=== PATIENT | male | born 1955 | race Caucasian/White ===

== ENCOUNTER 2016-10-06 23:57 | Emergency (ER) | payer BC ==
[~2016-10-06 23:57] MED LIST: ALEVE220 MG PO; ASAB PO; DILT-XR120 MG PO; GOODY'S EX-STR1 EAC1 PO; GOODYS PM1 POW OR; LIPITOR40 PO; LOP25 PO; MUCINEX600 MG PO; NEXIUM40 PO; NTG150 SL; PLAVIX PO; PREV30 PO; PRIN5 PO; SUCR PO
[2016-10-07 00:37] LABS: BASOPHILS 0.2 %; BASOPHILS ABSOLUTE 0.03 10/3/uL (0.0-0.16); EOSINOPHILS 2.7 %; EOSINOPHILS ABSOLUTE 0.34 10/3/uL (0.0-0.53); HEMATOCRIT 43.3 % (40.0-51.0); HEMOGLOBIN 14.8 g/dL (13.6-17.8); IMMATURE GRANULOCYTES 0.3 %; IMMATURE GRANULOCYTES ABSOLUTE 0.04 10/3/uL (0.0-0.11); LYMPHOCYTES ABSOLUTE 3.72 10/3/uL (0.67-4.30); MANUAL DIFF NO %; MEAN CORPUS HGB CONC 34.2 g/dL (32.0-36.0); MEAN CORPUSCULAR VOLUME 90.8 fL (80-100); MEAN PLATELET VOLUME 8.6 fL (9.2-13.0); MONOCYTES 9.8 %; MONOCYTES ABSOLUTE 1.26 10/3/uL (0.21-1.20); NEUTROPHILS ABSOLUTE 7.44 10/3/uL (2.02-8.40); PLATELET COUNT 257 10/3/uL (150-400); RBC DISTRIBUTION WIDTH 13.4 % (12.0-16.0); RED CELL COUNT 4.77 10/6/uL (4.7-6.1); WHITE BLOOD CELLS 12.8 10/3/uL (4.5-10.5)
[2016-10-07 00:51] LABS: A/G RATIO 0.8 (0.7-1.9); ALBUMIN 3.3 G/DL (3.5-5.0); ALKALINE PHOSPHATASE 123 U/L (45-117); CALCIUM, SERUM 8.8 MG/DL (8.5-10.4); CHLORIDE, SERUM 107 MMOL/L (96-112); CO2 (CARBON DIOXIDE) 25 MMOL/L (24-34); CREATININE 0.98 MG/DL (0.70-1.30); GFR AFRICAN AMERICAN 96 ML/MIN (>=60); GFR NON AFRICAN AMERICAN 83 ML/MIN (>=60); GLOBULIN 4.3 G/DL (2.5-4.1); GLUCOSE, SERUM 101 MG/DL (60-99); POTASSIUM, SERUM 3.6 MMOL/L (3.5-5.3); SGOT(AST) 37 U/L (5-40); SGPT(ALT) 35 U/L (5-65); SODIUM, SERUM 142 MMOL/L (135-148); TOTAL PROTEIN 7.6 G/DL (6.0-8.5)
[2016-10-07 00:53] LABS: BUN (BLOOD UREA NITROGEN) 22 MG/DL (6-23); TOTAL BILIRUBIN 1.6 MG/DL (0-1.2)
[2016-10-07 01:33] LABS: SED RATE 14 MM/HR (0-15)
[2016-10-07 02:05] LABS: C-REACTIVE PROTEIN 11.8 MG/L (<8.0)
[2016-10-07] MEDS ORDERED: LIPITOR40 PO (03:41)
[2016-10-07] MEDS ORDERED: LOP25 PO (03:41)
[2016-10-07] MEDS ORDERED: COZ25 PO (03:41)
[2016-10-07] MEDS ORDERED: PLAVIX PO (03:41)
[2016-10-07] MEDS ORDERED: ASAB PO (03:41)
[2016-10-07] MEDS ORDERED: PROTONIX PO (03:42)
[2016-10-07] MEDS ORDERED: GOODY'S EX-STR1 EAC1 PO (03:42)
[2016-10-07] MEDS ORDERED: NITROSTAT0.4 MG SL (03:42)
== END 2016-10-07 02:26 | disposition home or self-care (01) ==
LOC: ER 23:57
PROVIDERS: Emergency Medicine
DX: M25.571 Pain in right ankle and joints of right foot (principal); M25.572 Pain in left ankle and joints of left foot; I10 Essential (primary) hypertension; K21.9 Gastro-esophageal reflux disease without esophagitis; Z87.891 Personal history of nicotine dependence; Z98.61 Coronary angioplasty status; Z79.82 Long term (current) use of aspirin; Z79.899 Other long term (current) drug therapy
CPT/HCPCS: 73610-LT; 73610-RT; 80053; 83880; 84550; 85025; 85652; 86140; 96372; 99284; J1885